=== PATIENT | male | born 1975 | race Caucasian/White ===

== ENCOUNTER 2019-03-13 12:09 | Emergency (ER) | payer MEDICARE, OTHER ==
[~2019-03-13] VITALS: Ht 172.7 cm; Wt 81.8 kg
[~2019-03-13 12:09] MED LIST: LEVO25TA9 PO
[2019-03-13] MEDS ORDERED: LIDOCAINE 1% 10 ML VIAL INJ ONE (13:30)
[2019-03-13 14:53] VITALS: BP 103/71
== END 2019-03-13 15:02 | disposition home or self-care (01) ==
LOC: EMS 12:09
DX: S00.431A Contusion of right ear, initial encounter (principal); X58.XXXA Exposure to other specified factors, initial encounter; Y93.89 Activity, other specified; Y92.210 Daycare center as the place of occurrence of the external cause; Y99.8 Other external cause status
CPT/HCPCS: 10160; 99284; J3490

== ENCOUNTER 2019-03-16 10:44 | Emergency (ER) | payer MEDICARE ==
[~2019-03-16] VITALS: Ht 165.1 cm; Wt 118.2 kg
[2019-03-16 13:16] VITALS: BP 99/64
== END 2019-03-16 13:34 | disposition home or self-care (01) ==
LOC: EMS 10:45
DX: H92.01 Otalgia, right ear (principal)

== ENCOUNTER → 2021-04-28 | Outpatient (CLI) | payer MEDICARE | END | disposition home or self-care (01) | LOC: RADPV 09:35 | PROVIDERS: ATTEND Podiatrist Foot & Ankle Surgery | DX: M20.11 Hallux valgus (acquired), right foot (principal); M20.41 Other hammer toe(s) (acquired), right foot; M25.774 Osteophyte, right foot | CPT/HCPCS: 73630-TC ==